=== PATIENT | male | born 2000 | race Caucasian/White ===

== ENCOUNTER 2020-01-04 06:17 | Emergency (ER) | payer BC, SELFPAY ==
[2020-01-04 06:18] VITALS: BP 131/66; PULSE 70; RESP 20; TEMP 36.6; O2SAT 100
--- NOTE | 2020-01-04 06:30 | ED.GENADULT ---
HPI - General Adult General Chief complaint: Ear Stated complaint: SORE THROAT, EAR PAIN Time Seen by Provider: 01/04/20 06:30 Source: patient Mode of arrival: ambulatory Limitations: no limitations History of Present Illness HPI narrative: Patient presented for evaluation of rhinorrhea, sinus congestion and left ear pain. Patient reports he has felt a bubbling in his left ear, he reports aching left ear pain. Ear pain travels slightly down into the patient's neck, he is reporting some swollen lymph nodes on the left side. Denies right ear pain. No current sore throat. Patient has not had a fever or cough. No shortness of breath. No recent travel. No discharge from the ear. Related Data Allergies Allergy/AdvReac Type Severity Reaction Status Date / Time No Known Allergies Allergy Verified 01/04/20 06:22 Review of Systems Review of Systems: Narrative: CONSTITUTIONAL: Denies fever, chills, or sweats. ENT: Reports rhinorrhea, congestion, denies sore throat, reports left ear otalgia CARDIOVASCULAR: Denies chest pain RESPIRATORY: Denies cough or dyspnea. GASTROINTESTINAL: Denies nausea or vomiting PMFSH Past Medical History Medical History (Updated 01/04/20 @ 06:42 by Clara Moreno MD) Anxiety Attention-deficit hyperactivity disorder, other type Depression, major, in remission Gastroesophageal reflux disease without esophagitis Sinusitis Family History Family History Grandparent Diabetes mellitus Social History Social History Smoking status: Never smoker Alcohol intake: never Substance use: never Substance use type: does not use Gender identity (if verbalized by the patient): Male Exam Narrative: Exam Narrative: GENERAL: Well-appearing, well-nourished, and in no acute distress. HEAD: Normocephalic, atraumatic. EYES: PERRLA and EOMI. ENT: Nares clear, positive rhinorrhea, no epistaxis. Left otitis media with edema, erythema of the ear canal, bulging of the tympanic membrane, loss of light reflex. Right tympanic membrane normal, pearly agarwal. No tympanic membrane perforation bilaterally. NECK: Supple. Left anterior cervical lymphadenopathy, nontender. CHEST: No respiratory distress, breathing even and nonlabored respirations HEART: Regular rate ABDOMEN: Nondistended EXTREMITIES: Normal range of motion. No edema. SKIN: Warm, dry, no rash. NEURO: No focal deficits. Alert and oriented x3 Course Course Emergency Course: Patient presented with cough, cold symptoms and found to have a left otitis media. Afebrile, no hypoxemia, cough or shortness of breath though be consistent with Covid-19 virus. No signs of type symptoms. Will treat otitis media with antibiotics, patient was then discharged home. Vital Signs Vital signs: Vital Signs Temperature 36.6 C 01/04/20 06:18 Pulse Rate 70 01/04/20 06:18 Respiratory Rate 20 01/04/20 06:18 Blood Pressure 131/66 01/04/20 06:18 Pulse Oximetry 100 01/04/20 06:18 Temperature 36.6 C 01/04/20 06:18 Pulse Rate 70 01/04/20 06:18 Respiratory Rate 20 01/04/20 06:18 Blood Pressure 131/66 01/04/20 06:18 Pulse Oximetry 100 01/04/20 06:18 Medical Decision Making Vital Signs Vital Signs: Vital Signs Temperature 36.6 C 01/04/20 06:18 Pulse Rate 70 01/04/20 06:18 Respiratory Rate 20 01/04/20 06:18 Blood Pressure 131/66 01/04/20 06:18 Pulse Oximetry 100 01/04/20 06:18 Temperature 36.6 C 01/04/20 06:18 Pulse Rate 70 01/04/20 06:18 Respiratory Rate 20 01/04/20 06:18 Blood Pressure 131/66 01/04/20 06:18 Pulse Oximetry 100 01/04/20 06:18 Discharge Plan Discharge Clinical Impression: Otitis media Qualifiers: Otitis media type: serous Chronicity: acute Laterality: left Recurrence: non-recurrent Qualified Code(s): H65.02 - Acute serous otitis media, left ear Patient Disp
[2020-01-04 07:09] VITALS: BP 122/77; PULSE 72; RESP 18; O2SAT 98
== END 2020-01-04 07:09 | disposition home or self-care (01) ==
LOC: ANHED 06:48
PROVIDERS: Emergency Provider Emergency Medicine; PCP Family Medicine
DX: H65.02 Acute serous otitis media, left ear (principal)
CPT/HCPCS: 99283

== ENCOUNTER 2020-04-29 13:52 | Emergency (ER) | payer OTHER, SELFPAY ==
--- NOTE | 2020-04-29 14:05 | ED.SKABFB ---
HPI - Skin/Abscess/Foreign Bdy General Chief complaint: Skin/Abscess/Foreign Body Stated complaint: POS SPIDER BITE/ WEAK Time Seen by Provider: 04/29/20 14:05 Source: patient and RN notes reviewed History of Present Illness HPI narrative: Patient is a 20-year-old male who presents the urgent care with complaints of a possible spider bite to the right upper thigh. Patient states that he noticed it this morning and it hurt so bad this afternoon that he was in tears . Patient appears to be extremely anxious regarding the suspected spider bite and very overly excited . Patient denies of any fever, nausea, vomiting. Patient states that he believes he got bit by a black but denies seeing any insects or spiders. Patient has taken naproxen for the pain this afternoon. No other acute complaints. No acute distress noted. Patient read the plan of care. Related Data Allergies Allergy/AdvReac Type Severity Reaction Status Date / Time No Known Allergies Allergy Verified 04/29/20 14:13 Review of Systems Review of Systems: Narrative: CONSTITUTIONAL: Denies fever, chills, or sweats. EYES: Denies visual changes, redness, or discharge. ENT: Denies rhinorrhea, congestion, sore throat, or otalgia. CARDIOVASCULAR: Denies chest pain, palpitations, or edema. RESPIRATORY: Denies cough or dyspnea. GASTROINTESTINAL: Denies abdominal pain, nausea, vomiting, or diarrhea. GENITOURINARY: Denies dysuria or hematuria. SKIN:reports of a suspected spider bite to the right inner thigh MUSCULOSKELETAL: Denies back pain, joint pain, or myalgia. NEUROLOGIC: Denies headache, numbness, or weakness. All other systems reviewed are negative, except as documented in HPI. [facility] Past Medical History Medical History (Updated 04/29/20 @ 14:16 by YANDEL Bartlett) Anxiety Attention-deficit hyperactivity disorder, other type Depression, major, in remission Gastroesophageal reflux disease without esophagitis Sinusitis Social History Social History Smoking status: Never smoker Alcohol intake: never Substance use: never Substance use type: does not use Gender identity (if verbalized by the patient): Male Comments At the time of my signature, I reviewed and agree with the nursing past medical, surgical, social, and family history. There is no relevant family history pertinent to the patient complaint. Exam Narrative: Exam Narrative: GENERAL: This is a well-nourished, well-developed patient, in no apparent distress. HEAD: normocephalic, atraumatic. EYES: PERRL. Sclera clear/white. Vision is grossly intact. EARS: External ears normal NOSE: External nose normal with no obvious nasal discharge, nares without redness, no rhinorrhea. THROAT: Mucous membranes moist NECK: Neck supple SKIN: Suspected insect bite to the right inner thigh measuring 1 cm of erythema with 0.25 cm moderately erythemic center without any notable drainage. No ecchymosis or erosion to the site. Mild tenderness. NEURO: awake, alert, and oriented to person, place and time. There were no obvious focal neurologic abnormalities. EXTREMITIES: No clubbing, cyanosis, or edema. Course Vital Signs Vital signs: Vital Signs Temperature 97.7 F 04/29/20 14:09 Pulse Rate 52 L 04/29/20 14:09 Respiratory Rate 20 04/29/20 14:09 Blood Pressure 127/64 04/29/20 14:09 Pulse Oximetry 99 04/29/20 14:09 Temperature 97.7 F 04/29/20 14:09 Pulse Rate 52 L 04/29/20 14:09 Respiratory Rate 20 04/29/20 14:09 Blood Pressure 127/64 04/29/20 14:09 Pulse Oximetry 99 04/29/20 14:09 Reviewed MDM - Skin/Abscess/Foreign Bdy MDM Narrative Medical decision making narrative: Advised the patient not to pick at the area. May cover it if necessary however it will be beneficial to keep it open to air. May use Neosporin on the area. Use ice as needed. If you notice any increase in swelling or redness over the next 24 carmen
[2020-04-29 14:09] VITALS: BP 127/64; PULSE 52; RESP 20; TEMP 36.5; O2SAT 99
== END 2020-04-29 14:23 | disposition home or self-care (01) ==
PROVIDERS: Emergency Provider Nurse Practitioner Family
DX: S70.361A Insect bite (nonvenomous), right thigh, initial encounter (principal); W57.XXXA Bitten or stung by nonvenomous insect and other nonvenomous arthropods, initial encounter; K21.9 Gastro-esophageal reflux disease without esophagitis
CPT/HCPCS: 99213; G0463

== ENCOUNTER 2020-06-18 08:42 | Emergency (ER) | payer OTHER, SELFPAY ==
--- NOTE | ~2020-06-18 | CT_ITS ---
EXAMINATION: CT brain wo con DATE: 06/18/2020 09:20 INDICATION: Headache since 3 days ago. Visual changes. Nausea and vomiting. TECHNIQUE: Computed tomography (CT) of the head was performed without intravenous contrast. The mA wa s adjusted according to patient size. Iterative reconstruction technique was employed. Exam dose: 60 5.33 mGy-cm total exam DLP. COMPARISON: None FINDINGS: No intracranial mass lesion or hemorrhage or cerebrovascular accident. No midline shift or mass effect. Normal ventricular size. Normal agarwal-white matter differentiation. No subdural or epidur al hematoma. No fracture or bone destruction of the cranial vault. Focal opacified left ethmoid air cell. The included paranasal sinuses and mastoid air cells are other neil normally developed and aerated. IMPRESSION: No significant intracranial abnormality Focal opacified left ethmoid air cell Reviewed, dictated and finalized at [facility] Reviewed, dictated and finalized at [facility].
[2020-06-18 08:45] VITALS: BP 124/74; PULSE 65; RESP 18; TEMP 36.6; O2SAT 97
--- NOTE | 2020-06-18 09:09 | ED.HA ---
HPI - Headache General Chief Complaint: Headache Stated Complaint: Terrible head pain Time Seen by Provider: 06/18/20 09:09 Source: patient Mode of arrival: ambulatory Limitations: no limitations History of Present Illness HPI Narrative: Patient is a previously healthy 20-year-old male who presents for evaluation of headache pain. Patient states headache pain began 2 days ago, described as sharp in nature located in the back of his head traveling to the front left side of his head. Patient states headache pain has been steady and worsening over the past 48 hours. He denies trying any Tylenol or ibuprofen to help alleviate the pain. He reports photosensitivity to light, denies current blurry vision. He denies nausea, vomiting. No thunderclap sensation. Patient states he awakened with the pain 2 days ago. No history of migraine headaches. No recent stressors, sleep deprivation or new medications. He denies any drug use or alcohol use. Patient denies fever, chills or neck pain. Related Data Allergies Allergy/AdvReac Type Severity Reaction Status Date / Time No Known Allergies Allergy Verified 06/18/20 08:48 Review of Systems Review of Systems: Narrative: CONSTITUTIONAL: Denies fever, chills, or sweats. EYES: Denies current visual changes, denies redness of the eyes or tearing discharge ENT: Denies rhinorrhea, congestion, sore throat, or otalgia. CARDIOVASCULAR: Denies chest pain, palpitations, or edema. RESPIRATORY: Denies cough or dyspnea. GASTROINTESTINAL: Denies abdominal pain, nausea, vomiting. SKIN: Denies rash or itching. MUSCULOSKELETAL: Denies back pain, joint pain, or myalgia. NEUROLOGIC: Denies headache, numbness, or weakness. [facility] Past Medical History Medical History Anxiety Attention-deficit hyperactivity disorder, other type Depression, major, in remission Gastroesophageal reflux disease without esophagitis Sinusitis Social History Social History Smoking status: Never smoker Alcohol intake: never Substance use: never Substance use type: does not use Gender identity (if verbalized by the patient): Male Exam Narrative: Exam Narrative: GENERAL: Awake, alert, conversant HEAD: Normocephalic, atraumatic. EYES: PERRLA and EOMI. ENT: Nares clear, no rhinorrhea or epistaxis. Mucous membranes moist. NECK: Supple. CHEST: No respiratory distress, breathing even and non labored HEART: Regular rate, sinus rhythm ABDOMEN:Non distended, non tender EXTREMITIES: Normal range of motion. No edema. SKIN: Warm, dry, no rash. NEURO:No focal deficits. Alert and oriented x3. Finger to nose intact bilaterally. EOMs intact without nystagmus. No facial droop/asymmetry noted bilaterally. Grimace intact. Intact sensation in face. Hearing intact bilaterally. Shoulder shrug intact. Strength 5/5 bilateral upper extremities. Strength 5/5 bilateral lower extremities. Reflexes 2+ patellar. Heel to sheth intact bilaterally. Ambulatory with a narrow based, steady gait. Course Vital Signs Vital signs: Vital Signs Temperature 36.6 C 06/18/20 08:45 Pulse Rate 65 06/18/20 08:45 Respiratory Rate 18 06/18/20 08:45 Blood Pressure 124/74 06/18/20 08:45 Pulse Oximetry 97 06/18/20 08:45 Temperature 36.6 C 06/18/20 11:18 Pulse Rate 54 L 06/18/20 11:56 Respiratory Rate 20 06/18/20 11:56 Blood Pressure 116/86 06/18/20 11:56 Pulse Oximetry 100 06/18/20 11:56 MDM - Headache MDM Narrative Medical decision making narrative: The patient was evaluated in the emergency department for headache. Patient has completely normal neurological exam at the time of assessment stable vital signs. IV access obtained and labs are drawn. Patient was given IV migraine cocktail. As for the patient's history, patient's headache pain was not sudden or maximal in onset. There are no focal deficits on exam. Subar
[2020-06-18] MEDS: SODIUM CHLORIDE 0.9% IV 1,000 ML 999 ML IV CONT (09:22)
[2020-06-18] MEDS: METOCLOPRAMIDE HCL INJ 10 MG/2 ML VIAL IV PUSH (09:23)
[2020-06-18] MEDS: diphenhydrAMINE HCl INJ 50 MG/ML VIAL 25 MG IV PUSH (09:24)
[2020-06-18 09:32] LABS: Basophils Percent Auto 0.6 % (0.2-1.2); Eosinophils Absolute Auto 0.1 K/mm3 (0-0.3); Eosinophils Percent Auto 1.4 % (0-4.4); Hematocrit 46.7 % (42.0-52.0); Hemoglobin 15.3 g/dL (14.0-18.0); Immature Granulocyte Absolute 0.02 K/mm3 (0.00-0.031); Immature Granulocyte Percent A 0.3 % (0-0.5); Lymphocytes Absolute Auto 1.77 K/mm3 (0.9-3.2); Lymphocytes Percent Auto 28.5 % (18.3-44.2); Mean Corpuscular HGB Conc 32.8 g/dl (32-36); Mean Corpuscular Hemoglobin 28.9 pg (26-34); Mean Corpuscular Volume 88.3 fl (80-100); Mean Platelet Volume 10.7 fl (7.4-10.4); Monocytes Absolute Auto 0.5 K/mm3 (0.1-0.6); Monocytes Percent Auto 7.2 % (2.6-8.5); Neutrophils Absolute Auto 3.9 K/mm3 (1.3-6.7); Platelet Count Result 250 k/mm3 (150-375); Red Blood Count 5.29 M/mm3 (4.6-6.20); Red Cell Distribution Width 13.1 % (11.5-14.5); White Blood Count 6.2 K/mm3 (4.5-10.0)
[2020-06-18 09:46] LABS: Anion Gap 11 mmol/L (8-16); Blood Urea Nitrogen 12 mg/dL (9-20); Calcium 9.5 mg/dL (8.4-10.2); Carbon Dioxide 25 mmol/L (22-30); Chloride 107 mmol/L (98-107); Estimated CRCL calculation 158 ml/min; Estimated Glomerular Filt Rate > 60; Glucose 97 mg/dL (75-110); Sodium 143 mmol/L (137-145)
[2020-06-18 09:50] VITALS: BP 112/71; PULSE 50; RESP 18; O2SAT 98
[2020-06-18] MEDS: MAGNESIUM SULF 2 GM/WATER 50ML 2 GM/50 ML BAG IVPB (09:50)
[2020-06-18 09:56] VITALS: TEMP 36.6
[2020-06-18 10:18] VITALS: BP 108/67; PULSE 54; RESP 18; O2SAT 99
[2020-06-18] MEDS: KETOROLAC 15 MG/ML VIAL (*BKC) IV PUSH (10:48)
[2020-06-18 11:18] VITALS: TEMP 36.6
[2020-06-18 11:56] VITALS: BP 116/86; PULSE 54; RESP 20; O2SAT 100
== END 2020-06-18 12:27 | disposition home or self-care (01) ==
PROVIDERS: Emergency Provider Emergency Medicine; PCP Family Medicine
DX: G43.009 Migraine without aura, not intractable, without status migrainosus (principal); K21.9 Gastro-esophageal reflux disease without esophagitis
CPT/HCPCS: 36415; 70450; 80048; 85025; 96361; 96365; 96375; 99284; J0131; J1100; J1200; J1885; J2765; J3475; J7030

== ENCOUNTER 2021-11-17 11:35 | Emergency (ER) | payer OTHER, SELFPAY ==
--- NOTE | ~2021-11-17 | XR_ITS ---
EXAMINATION: XR chest 2V DATE: 11/17/2021 12:55 INDICATION: Chest pain TECHNIQUE: PA and lateral views of the chest were obtained. COMPARISON: None FINDINGS: The lungs are clear with no focal airspace opacities, pulmonary edema, pleural effusion or pneumothor ax. The cardiomediastinal silhouette is normal. Visualized bones and soft tissues are unremarkable. IMPRESSION: 1. Normal chest radiograph. Reviewed, dictated and finalized at [facility]. WORKER IMPRESSION: 1. Normal chest radiograph.
[2021-11-17 11:37] VITALS: BP 127/72; PULSE 59; RESP 16; TEMP 36.3; O2SAT 100
--- NOTE | 2021-11-17 12:30 | ECG_ITS ---
Measurements Intervals [place] Rate: 50 P: 11 CA: 141 QRS: 25 QRSD: 102 T: 14 QT: 416 QTc: 382 Interpretive Statements SINUS BRADYCARDIA MINIMAL Q WAVES- HIGH LATERAL LEADS BASELINE ARTIFACT- I, III, AVL BORDERLINE ECG Electronically Signed On 11-17-2021 13:52:02 [employer] by Emil Phelps D.O.
[2021-11-17 12:39] VITALS: PULSE 66
[2021-11-17 12:45] VITALS: BP 115/79; PULSE 67; RESP 17; O2SAT 98
[2021-11-17 13:16] LABS: Basophils Percent Auto 0.5 % (0.2-1.2); Eosinophils Percent Auto 0.6 % (0-4.4); Hematocrit 42.4 % (42.0-52.0); Hemoglobin 14.4 g/dL (14.0-18.0); Immature Granulocyte Absolute 0.01 K/mm3 (0.00-0.031); Immature Granulocyte Percent A 0.2 % (0-0.5); Lymphocytes Percent Auto 26.2 % (18.3-44.2); Mean Corpuscular Hemoglobin 29.9 pg (26-34); Mean Corpuscular Volume 88.1 fl (80-100); Mean Platelet Volume 10.2 fl (7.4-10.4); Monocytes Absolute Auto 0.6 K/mm3 (0.1-0.6); Monocytes Percent Auto 9.5 % (2.6-8.5); Neutrophils Absolute Auto 4.1 K/mm3 (1.3-6.7); Platelet Count Result 208 k/mm3 (150-375); Red Blood Count 4.81 M/mm3 (4.6-6.20); Red Cell Distribution Width 12.9 % (11.5-14.5); White Blood Count 6.5 K/mm3 (4.5-10.0)
[2021-11-17 13:30] LABS: Alanine Aminotransferase 18 U/L (4-50); Albumin Level 4.7 g/dL (3.5-5.1); Alkaline Phosphatase 69 U/L (38-126); Anion Gap 7 mmol/L (8-16); Aspartate Amino Transferase 30 U/L (17-59); Bilirubin,Total 0.8 mg/dL (0.2-1.3); Blood Urea Nitrogen 11 mg/dL (9-20); Calcium 9.6 mg/dL (8.4-10.2); Carbon Dioxide 26 mmol/L (22-30); Chloride 106 mmol/L (98-107); Estimated CRCL calculation 187 ml/min; Estimated Glomerular Filt Rate > 60; Glucose 97 mg/dL (65-110); Potassium 3.6 mmol/L (3.4-5.0); Sodium 139 mmol/L (137-145)
[2021-11-17 13:40] LABS: Troponin I < 0.012 ng/mL (0.000-0.034)
[2021-11-17 13:48] LABS: D Dimer < 0.27 ug/mL (<0.48)
--- NOTE | 2021-11-17 13:51 | ED.GENADULT ---
HPI - General Adult General Chief complaint: Shortness of Breath/Dyspnea Stated complaint: sob, arm pain Time Seen by Provider: 11/17/21 12:21 History of Present Illness HPI narrative: Patient is a 21-year-old male who presents ER with left arm pain as well as numbness and some shortness of breath/chest discomfort. Symptoms lasted 45 minutes. No known injury. No history of DVT or PE. No lower extremity swelling. Patient reports he had point tenderness in the middle of his left bicep and this was occurring that was worse with palpation. Had normal range of motion and function. Had tingling going into his fingers. Reports brief difficulty breathing. No hemoptysis. No cough. Related Data Allergies Allergy/AdvReac Type Severity Reaction Status Date / Time No Known Allergies Allergy Verified 11/17/21 12:39 Review of Systems Review of Systems: All systems reviewed & are unremarkable except as noted in HPI and below Constitutional: Constitutional: Denies chills, Denies fever(s) and Denies weakness ENT: Denies nasal congestion and Denies sore throat Cardiovascular: Cardiovascular: Reports chest pain, Denies rapid heart rate and Denies radiating jaw, neck or arm pain Respiratory: Respiratory: Denies cough and Reports dyspnea Musculoskeletal: Musculoskeletal: Denies back pain, Denies arthralgias and Reports muscle cramps Neurologic: Denies dizziness, Denies headache(s), Denies focal weakness and Reports numbness PMFSH Past Medical History Medical History (Updated 11/17/21 @ 15:16 by Liam Smallwood MD) Adult BMI 26.0-26.9 kg/sq m Anxiety Attention-deficit hyperactivity disorder, other type BMI 24.0-24.9, adult BMI 25.0-25.9,adult Depression, major, in remission Gastroesophageal reflux disease without esophagitis Sinusitis Surgical History Surgical History (Updated 11/17/21 @ 14:02 by Liam Smallwood MD) No pertinent past surgical history Family History Family History Grandparent Diabetes mellitus COVID-19 Father No problems noted. Mother No problems noted. Sibling No problems noted. Social History Social History Smoking status: Former smoker Tobacco type: e-cigarettes/vaping Second hand tobacco smoke exposure: No Alcohol intake: current Substance use: never Substance use type: does not use Additional occupation/education comments: day care Gender identity (if verbalized by the patient): Male Exam Narrative: GENERAL: Well-appearing, well-nourished, and in no acute distress. HEAD: Normocephalic, atraumatic. EYES: PERRL and EOMI. NECK: Supple. No paraspinal muscle tenderness. CHEST: Clear to auscultation. No respiratory distress. HEART: Bradycardic and regular. Normal peripheral pulses. ABDOMEN: Soft, nontender, nondistended EXTREMITIES: Normal range of motion. No edema. No reproducible tenderness. Negative carpal tunnel compression test. SKIN: Warm, dry, no rash. NEURO: No focal deficits. Alert and oriented x3. Course Course Emergency Course: Patient resting comfortably. He does feel that he had a muscle cramp and likely had anxiety as a result of it. He has no discomfort or issues here. Work-up is benign unremarkable. Discharge home. Vital Signs Vital signs: Vital Signs Temperature 97.4 F L 11/17/21 11:37 Pulse Rate 59 L 11/17/21 11:37 Respiratory Rate 16 11/17/21 11:37 Blood Pressure 127/72 11/17/21 11:37 Pulse Oximetry 100 11/17/21 11:37 Temperature 97.4 F L 11/17/21 11:37 Pulse Rate 67 11/17/21 12:45 Respiratory Rate 17 11/17/21 12:45 Blood Pressure 115/79 11/17/21 12:45 Pulse Oximetry 98 11/17/21 12:45 Medical Decision Making Vital Signs Vital Signs: Vital Signs Temperature 97.4 F L 11/17/21 11:37 Pulse Rate 59 L 11/17/21 11:37 Respiratory Rate 16 11/17/21 11:37 Blood Pressu
[2021-11-17 15:35] VITALS: BP 105/74; PULSE 55; RESP 16; O2SAT 99
== END 2021-11-17 15:35 | disposition home or self-care (01) ==
PROVIDERS: Emergency Provider Emergency Medicine; PCP Family Medicine
DX: R25.2 Cramp and spasm (principal); R00.1 Bradycardia, unspecified; F41.9 Anxiety disorder, unspecified; F32.9 Major depressive disorder, single episode, unspecified; K21.9 Gastro-esophageal reflux disease without esophagitis
CPT/HCPCS: 36415; 71046; 80053; 84484; 85025; 85380; 93005; 99284

== ENCOUNTER 2022-04-21 10:10 | Emergency (ER) | payer SELFPAY ==
--- NOTE | 2022-04-21 10:14 | ED.URI ---
HPI - URI/Sore Throat General Chief Complaint: Upper Respiratory Infection Stated Complaint: Sore Throat Time Seen by Provider: 04/21/22 10:25 Source: patient, RN notes reviewed and old records reviewed Mode of arrival: ambulatory Limitations: no limitations History of Present Illness HPI Narrative: 22 year old male presents to [facility] care with complaints of sore throat for the past 8 days and intermittent headache, runny nose and pressure to his ears. He reports that he has had some nausea but denies any vomiting or diarrhea. He states that he had 101F fever at 0300 and he took Advil with temp down to 99F at 0600. He reports that he has had Covid vaccinations no Booster or any flu shot, denies any body aches or any shortness of breath. 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 MD elicited complaint: fever, sore throat, rhinorrhea and other (ear pressure) Pertinent past history: seasonal allergies Onset (ago): day(s) (8) Pain scale (0-10): 4 Treatments prior to arrival: ibuprofen Related Data Home Medications Medication Instructions Recorded Confirmed No Home Medications 04/21/22 04/21/22 Allergies Allergy/AdvReac Type Severity Reaction Status Date / Time No Known Allergies Allergy Verified 04/21/22 10:11 Review of Systems Review of Systems: CONSTITUTIONAL: Reports fever, chills, or sweats. EYES: Denies visual changes, redness, or discharge. ENT: Positive rhinorrhea, congestion, sore throat, ear pressure CARDIOVASCULAR: Denies chest pain, palpitations, or edema. RESPIRATORY: Denies cough or dyspnea. GASTROINTESTINAL: Denies abdominal pain, nausea, vomiting, or diarrhea. GENITOURINARY: Denies dysuria or hematuria. SKIN: Denies rash or itching. MUSCULOSKELETAL: Denies back pain, joint pain, or myalgia. NEUROLOGIC: Positive for headache,no numbness, or weakness. PSYCHIATRIC: Positive anxiety or depression. All systems reviewed & are unremarkable except as noted in HPI and below PMFSH Past Medical History Medical History Adult BMI 26.0-26.9 kg/sq m Anxiety Attention-deficit hyperactivity disorder, other type BMI 24.0-24.9, adult BMI 25.0-25.9,adult Depression, major, in remission Gastroesophageal reflux disease without esophagitis Sinusitis Surgical History Surgical History No pertinent past surgical history Family History Family History Grandparent Diabetes mellitus COVID-19 Father No problems noted. Mother No problems noted. Sibling No problems noted. Social History Social History Smoking status: Former smoker Tobacco type: e-cigarettes/vaping Second hand tobacco smoke exposure: No Alcohol intake: current Substance use: never Substance use type: does not use Additional occupation/education comments: day care Gender identity (if verbalized by the patient): Male Comments At time of signature, agree with nursing past medical, surgical, social and family history. There is no relevant family history pertinent to the presenting complaint Exam Narrative: GENERAL: Well-appearing, well-nourished, and in no acute distress. HEAD: Normocephalic, atraumatic. EYES: PERRLA and EOMI. ENT: Nares mild redness with clear rhinorrhea no epistaxis. Mucous membranes moist.TM's normal with dull light reflex, throat with some redness, uvula swollen and red, no exudates or lesion, no tonsil swelling. NECK: Supple. no lymphadenopathy CHEST: Clear to auscultation. No respiratory distress.SAO2 100% on room air HEART: Regular rate and rhythm. No murmur heard. Normal peripheral pulses. ABDOMEN: Soft, nontender, nondistended, normal active bowel sounds. EXTREMITIES: Normal range of motion. No edema. SKIN: Warm, dry, no rash. NEURO: No focal deficits. Alert and oriented x3. Co
[2022-04-21 10:19] VITALS: BP 125/77; PULSE 80; RESP 12; TEMP 36.6; O2SAT 100
== END 2022-04-21 10:53 | disposition home or self-care (01) ==
PROVIDERS: Emergency Provider Registered Nurse
DX: J06.9 Acute upper respiratory infection, unspecified (principal); J02.9 Acute pharyngitis, unspecified; Z20.822 Contact with and (suspected) exposure to COVID-19; K21.9 Gastro-esophageal reflux disease without esophagitis
CPT/HCPCS: 87081; 87426; 87880; 99213; C9803; G0463

== ENCOUNTER 2022-12-20 10:28 | Emergency (ER) | payer SELFPAY ==
[2022-12-20 10:35] VITALS: BP 127/91; PULSE 62; RESP 18; TEMP 36.7; O2SAT 99
[2022-12-20 11:05] LABS: Basophils Percent Auto 0.6 % (0.2-1.2); Eosinophils Absolute Auto 0.1 K/mm3 (0-0.3); Eosinophils Percent Auto 1.2 % (0-4.4); Hematocrit 42.2 % (42.0-52.0); Hemoglobin 14.3 g/dL (14.0-18.0); Immature Granulocyte Absolute 0.01 K/mm3 (0.00-0.031); Immature Granulocyte Percent A 0.2 % (0-0.5); Lymphocytes Absolute Auto 1.61 K/mm3 (0.9-3.2); Lymphocytes Percent Auto 32.4 % (18.3-44.2); Mean Corpuscular HGB Conc 33.9 g/dl (32-36); Mean Corpuscular Hemoglobin 30.4 pg (26-34); Mean Corpuscular Volume 89.6 fl (80-100); Mean Platelet Volume 9.6 fl (7.4-10.4); Monocytes Absolute Auto 0.4 K/mm3 (0.1-0.6); Monocytes Percent Auto 7.4 % (2.6-8.5); Neutrophils Absolute Auto 2.9 K/mm3 (1.3-6.7); Neutrophils Percent Auto 58.2 % (45.5-73.1); Platelet Count Result 221 k/mm3 (150-375); Red Blood Count 4.71 M/mm3 (4.6-6.20); Red Cell Distribution Width 12.7 % (11.5-14.5)
[2022-12-20 11:06] LABS: Appearance Urine Clear (Clear); Bilirubin Urine Negative (Negative); Blood Urine Negative (Negative); Color Urine Yellow (Yellow); Glucose Urine UA Negative (Negative); Ketones Urine Trace mg/dL (Negative); Leukocyte Esterase Ur Negative LEU/UL (Negative); Nitrate Urine Negative (Negative); Protein Urine Negative (Negative); Specific Grav Ur 1.021 (1.001-1.035); pH Urine 7.5 (5.0-9.0)
[2022-12-20 11:11] LABS: Add Urine Microscopic? NO
[2022-12-20 11:15] LABS: Alanine Aminotransferase 22 U/L (6-50); Albumin Level 4.6 g/dL (3.5-5.1); Alkaline Phosphatase 61 U/L (38-126); Anion Gap 7 mmol/L (8-16); Aspartate Amino Transferase 31 U/L (17-59); Bilirubin,Total 0.8 mg/dL (0.2-1.3); Blood Urea Nitrogen 8 mg/dL (9-20); Carbon Dioxide 26 mmol/L (22-30); Chloride 107 mmol/L (98-107); Glucose 101 mg/dL (65-110); Sodium 140 mmol/L (137-145)
--- NOTE | 2022-12-20 11:29 | PC.NURSE ---
RN called pt to go back to a room. Pt stated his brother was having a medical emergency and being transported to [facility] and he had to leave because he was POA. RN informed pt he would go to a room now. Pt states he had to leave.
[2022-12-20 11:42] LABS: Estimated CRCL calculation 209 ml/min; Estimated Glomerular Filt Rate > 60
== END 2022-12-20 11:29 | disposition left against medical advice (07) ==
LOC: ANHED 11:40
PROVIDERS: Emergency Provider Physician Assistant
DX: R10.9 Unspecified abdominal pain (principal)
CPT/HCPCS: 36415; 80053; 81003; 85025; 99199

== ENCOUNTER 2024-05-28 09:48 | Emergency (ER) | payer OTHER, SELFPAY ==
[2024-05-28 10:17] VITALS: BP 116/66; PULSE 54; RESP 18; TEMP 36.6; O2SAT 100
--- NOTE | 2024-05-28 10:17 | ECG_ITS ---
Test Date: 2024-05-28 10:30:04 Measurements Intervals [place] Rate: 49 P: 19 MS: 156 QRS: 36 QRSD: 100 T: 19 QT: 411 QTc: 371 Interpretive Statements SINUS BRADYCARDIA No previous ECG available for comparison Electronically Signed On 05-29-2024 14:19:52 CDT by Dustin Fraire M.D.
--- NOTE | 2024-05-28 10:21 | ED.CHESTPAIN ---
HPI - Chest Pain General Chief Complaint: Chest Pain Stated Complaint: warmth around heart area Time Seen by Provider: 05/28/24 10:20 Source: patient Mode of arrival: ambulatory Limitations: no limitations History of Present Illness HPI narrative: Jefe is a 24-year-old male patient presenting to the clinic today with complaints of feeling a warmth around the left chest and right arm pain. He reports that he woke up around 230 this morning with the warmth feeling around his chest and some right arm pain. Initially he thought he may slip on his arm wrong but then started to become anxious about the arm pain and the warmness sensation to the left chest and thought he was having a heart attack. He started to Google his symptoms. History of anxiety and GERD. Former smoker/alcohol use-quit 2 years ago. States that his younger brother had a heart attack in his early 20s. Has not seen a primary care provider or had any blood work since 2019. Denies any shortness of breath associated. States that this does not feel like anxiety or GERD. Related Data Home Medications Medication Instructions Recorded Confirmed No Home Medications 04/21/22 05/28/24 Allergies Allergy/AdvReac Type Severity Reaction Status Date / Time No Known Allergies Allergy Verified 05/28/24 10:26 Review of Systems Review of Systems: Pertinent positives per HPI. Patient denies any fever, chills, rash, headache, visual changes, dizziness, cough, runny nose, sore throat, shortness of breath, palpitations, nausea, vomiting, diarrhea, constipation, abdominal pain, or any urinary issues. PMFSH Past Medical History Medical History Adult BMI 26.0-26.9 kg/sq m Anxiety Attention-deficit hyperactivity disorder, other type BMI 24.0-24.9, adult BMI 25.0-25.9,adult Depression, major, in remission Gastroesophageal reflux disease without esophagitis Sinusitis Surgical History Surgical History No pertinent past surgical history Family History Family History Grandparent Diabetes mellitus COVID-19 Father No problems noted. Mother No problems noted. Sibling No problems noted. Social History Social History Smoking status: Former smoker Tobacco type: e-cigarettes/vaping Second hand tobacco smoke exposure: No Alcohol intake: current Substance use: never Substance use type: does not use Living arrangements: with family Occupation/Education: occupation Additional occupation/education comments: day care Gender identity (if verbalized by the patient): Male Comments At the time of my signature, I reviewed and agree with the nursing past medical, surgical, social, and family history. There is no relevant family history pertinent to the patient complaint. Exam Narrative: General: Well-developed, well nourished, in no apparent distress Head: Normocephalic, atraumatic. Cardio: Regular rate and rhythm, s1 and s2 normal, no murmur appreciated. Resp: Clear to auscultation bilaterally, no rhonchi, rales, wheezing or rubs. Extremities: No deformity, no edema, no cyanosis, capillary refill less than 2 seconds, peripheral pulses palpable and strong. Integumentary: [place], warm, and dry, intact without lesion, no rashes. Course Course Emergency Course: Portions of this record may have been created with voice recognition software. Level of Care: Express Care Visit Vital Signs Vital signs: Vital Signs Temperature 36.6 C 05/28/24 10:17 Pulse Rate 54 L 05/28/24 10:17 Respiratory Rate 18 05/28/24 10:17 Blood Pressure 116/66 05/28/24 10:17 Pulse Oximetry 100 05/28/24 10:17 Oxygen Delivery Room Air 05/28/24 10:17 Temperature 36.6 C 05/28/24 10:17 Pulse Rate 54 L
== END 2024-05-28 10:46 | disposition short-term general hospital (02) ==
PROVIDERS: Emergency Provider Nurse Practitioner Family
DX: R07.9 Chest pain, unspecified (principal); M79.601 Pain in right arm; K21.9 Gastro-esophageal reflux disease without esophagitis; Z87.891 Personal history of nicotine dependence
CPT/HCPCS: 93005; 99213; G0463

== ENCOUNTER 2024-05-28 11:03 | Emergency (ER) | payer OTHER, SELFPAY ==
--- NOTE | ~2024-05-28 | XR_ITS ---
XR chest 2V Ordering provider: Adela Barragan MD History: 24 years Male with . CP - left sided . Comparison: November 17, 2021 FINDINGS: MEDIASTINUM: The cardiac silhouette is not enlarged. LUNGS: No infiltrates, effusions or pneumothorax. OTHER: No free air under the diaphragm. IMPRESSION: No acute cardiopulmonary pathology. Reviewed, dictated and finalized at location A.
--- NOTE | 2024-05-28 11:06 | ECG_ITS ---
Test Date: 2024-05-28 11:11:09 Measurements Intervals [place] Rate: 48 P: 18 LA: 138 QRS: 29 QRSD: 99 T: 10 QT: 411 QTc: 371 Interpretive Statements SINUS BRADYCARDIA Compared to ECG 05/28/2024 10:30:04 No significant changes Electronically Signed On 05-29-2024 14:20:23 CDT by Dustin Fraire M.D.
[2024-05-28 11:14] VITALS: BP 137/82; PULSE 52; RESP 15; TEMP 36.8; O2SAT 100
[2024-05-28] MEDS: ASPIRIN 81 MG CHEWABLE TABLET 324 MG PO (11:21)
[2024-05-28 11:22] VITALS: O2SAT 100
[2024-05-28 11:26] VITALS: PULSE 53
--- NOTE | 2024-05-28 11:34 | ED.CHESTPAIN ---
HPI - Chest Pain General Chief Complaint: Chest Pain Stated Complaint: L sided chest pain Time Seen by Provider: 05/28/24 11:16 Source: patient and other (Urgent Care) Limitations: no limitations History of Present Illness HPI narrative: Patient presents from urgent care where there was concern for features of EKG and patient's family history. Patient presents with a chest discomfort that he does not describe as carson pain but uncomfortable. He states he feels warmth...feels like I'm near an electric blanket or felt like I had taken a warm shot of alcohol but he denies alcohol recently. He had been diagnosed with refluex when he was younger and had been on medication but not currently as this has been welll controlled through diet modification, avoiding tomaotoes/red sauce, spice food, or coffee. Denies any sharp or stabbing nature to the pain. It started at 2:30 in the morning at rest while on his phone. He denies feeling flushed or having shortness of breath. No diaphoresis. He had felt nauesated and fatigued earlier in the day around the time work (in a [employer]) was wrapping up but not at the time of symptoms. No diagnosis of HTN, HLD, MD, DM, CVA/TIA. He quit vaping 2 years ago. His brother questionably had a MD in his early 20s as he had concerning EKG findings while in EMT class but does not have any cardiac stents. Related Data Allergies Allergy/AdvReac Type Severity Reaction Status Date / Time No Known Allergies Allergy Verified 05/28/24 10:26 COUNT INCLUDES THE [facility] Past Medical History Medical History Adult BMI 26.0-26.9 kg/sq m Anxiety Attention-deficit hyperactivity disorder, other type Depression, major, in remission Gastroesophageal reflux disease without esophagitis Sinusitis Surgical History Surgical History No pertinent past surgical history Family History Family History Grandparent Diabetes mellitus COVID-19 Father No problems noted. Mother No problems noted. Sibling Acute myocardial infarction early 20s; based on EKG findings, no stents Social History Social History Smoking status: Former smoker Tobacco type: e-cigarettes/vaping Second hand tobacco smoke exposure: No Alcohol intake: current Substance use: never Substance use type: does not use Living arrangements: with family Occupation/Education: occupation Additional occupation/education comments: previously worked in day care, now works for a [employer] Gender identity (if verbalized by the patient): Male Additional gender identity comments: engaged/has a fiance Exam Narrative: GENERAL: Well-appearing, well-nourished, and in no acute distress. HEAD: Normocephalic, atraumatic. EYES: Non injected, non icteric ENT: Nares clear, no rhinorrhea or epistaxis. NECK: Supple. CHEST: Speaking in full sentences. No respiratory distress. No subcutaneous emphysema. HEART: Bradycardic rate and rhythm. . ABDOMEN: Soft, nondistended. EXTREMITIES: Normal range of motion. No lower extremity edema. SKIN: Warm, dry, no rash. No erythema or ecchymosis or lesions over chest. NEURO: No focal deficits. Alert and oriented x3. PSYCH: Normal mood and affect. Course Vital Signs Vital signs: Vital Signs Temperature 98.3 F 05/28/24 11:14 Pulse Rate 52 L 05/28/24 11:14 Respiratory Rate 15 05/28/24 11:14 Blood Pressure 137/82 05/28/24 11:14 Pulse Oximetry 100 05/28/24 11:14 Oxygen Delivery Room Air 05/28/24 11:14 Temperature 98.3 F 05/28/24 11:14 Pulse Rate 54 L 05/28/24 13:23 Respiratory Rate 16 05/28/24 13:23 Blood Pressure 112/73 05/28/24 13:23 Pulse Oximetry 100 05/28/24 13:23 Oxygen Delivery Room Air 05/28/24 11:22 MDM - Chest Pain MDM Narrat
[2024-05-28 12:07] LABS: Basophils Percent Auto 0.3 % (0.2-1.2); Eosinophils Absolute Auto 0.1 K/mm3 (0-0.3); Eosinophils Percent Auto 1.2 % (0-4.4); Hematocrit 43.1 % (42.0-52.0); Hemoglobin 14.7 g/dL (14.0-18.0); Immature Granulocyte Absolute 0.01 K/mm3 (0.00-0.031); Immature Granulocyte Percent A 0.2 % (0-0.5); Lymphocytes Percent Auto 28.2 % (18.3-44.2); Mean Corpuscular HGB Conc 34.1 g/dl (32-36); Mean Corpuscular Hemoglobin 30.7 pg (26-34); Mean Platelet Volume 9.9 fl (7.4-10.4); Monocytes Absolute Auto 0.5 K/mm3 (0.1-0.6); Neutrophils Absolute Auto 3.7 K/mm3 (1.3-6.7); Neutrophils Percent Auto 62.1 % (45.5-73.1); Platelet Count Result 211 k/mm3 (150-375); Red Blood Count 4.79 M/mm3 (4.6-6.20); Red Cell Distribution Width 12.8 % (11.5-14.5)
[2024-05-28 12:19] LABS: Alanine Aminotransferase 20 U/L (6-50); Albumin Level 4.9 g/dL (3.5-5.1); Alkaline Phosphatase 69 U/L (38-126); Anion Gap 12 mmol/L (4-12); Aspartate Amino Transferase 28 U/L (17-59); Bilirubin,Total 0.8 mg/dL (0.2-1.3); Blood Urea Nitrogen 11 mg/dL (9-20); Calcium 9.5 mg/dL (8.4-10.2); Carbon Dioxide 26 mmol/L (22-30); Chloride 101 mmol/L (98-107); Estimated CRCL calculation 153 ml/min; Estimated Glomerular Filt Rate > 60; Glucose 95 mg/dL (65-110); Lipase 63 U/L (23-300); Potassium 4.1 mmol/L (3.4-5.0); Sodium 139 mmol/L (137-145)
[2024-05-28 12:23] LABS: Prothrombin Time 13.6 Seconds (11.1-14.7)
[2024-05-28 12:24] LABS: Partial Thromboplastin Time 29.5 Seconds (22.3-36.8)
[2024-05-28 12:31] LABS: Troponin I < 0.012 ng/mL (0.000-0.034)
[2024-05-28 13:23] VITALS: BP 112/73; PULSE 54; RESP 16; O2SAT 100
[2024-05-28] MEDS: FAMOTIDINE 10 MG TABLET PO (13:25)
== END 2024-05-28 13:31 | disposition home or self-care (01) ==
PROVIDERS: Emergency Provider Student in an Organized Health Care Education/Training Program
DX: R00.1 Bradycardia, unspecified (principal); R07.89 Other chest pain; Z87.891 Personal history of nicotine dependence
CPT/HCPCS: 36415; 71046; 80053; 83690; 84484; 85025; 85610; 85730; 93005; 99284; A9270

== ENCOUNTER 2025-02-17 10:54 | Emergency (ER) | payer OTHER, SELFPAY ==
[2025-02-17 11:05] VITALS: BP 135/80; PULSE 66; RESP 18; TEMP 36.4; O2SAT 99
--- OUTSIDE RECORDS SUMMARY | 2025-02-17 11:17 | XMS_ITS | Continuity of Care Document ---
Author Organization [facility] Address [address] [place] [address] Phone Care Team Providers Care Implementation Services Analyst Name Role Phone Berkowitz OD, José Miguel Unavailable Unavailable Procedures Procedure Date Eye Exam & Treatment Refraction Eye Exam & Treatment Refraction Eye Exam & Treatment Refraction Advance Directives Directive Yes / No Effective Date File Name No Information Encounters Encounter Description Practice Location Reason(s) For Visit Diagnoses Date Provider Providers Copied on Encounter [facility], [address] [place] [address] [address], [place], [place], [id number], tel:[phone] [facility] No Information 9-201 0 Berkowitz OD José Miguel. [address] , [address], [place], [place], [facility], [place]. tel:[phone] [facility], [address] [place] [address] [address], [place], [place], [id number], [place] tel:[phone] [facility] No Information 8-200 9 Berkowitz OD José Miguel. [address], [address], [place], [address], [place]. tel:[phone] [facility], [address] [place] [address] [address], [place], [place], [id number], [place] tel:[phone] [facility] No Information 9-200 7 Berkowitz OD José Miguel. [address] , [address], [place], [address], [place]. tel:[phone] Family History Family Member Type Diagnosis Age At Onset No Information Payers Payer name Insurance type Covered green party ID Romario bernal(s) [facility] [id number] Social History Type Description Quantity Date Captured Comments Sex Male Smoking Status No Information Chief Complaint And Reason For Visit No Information Reason For Referral Reason For Referral No Information History Of Present Illness Encounter Date Complaint History Of Prese nt Illness No Information Functional Status Date Functional Assessmen t No Information Instructions Date Instruction Additional Infor mation No Information Assessments Type Assessment Date No Information Patient Care Teams Name Effective Dates (start - stop) Status Members No Information
--- OUTSIDE RECORDS SUMMARY | 2025-02-17 11:17 | XMS_ITS | Clinical Summary ---
Author Organization [facility] Address [address] [place] [address] Care Team Providers Care Aviation Electronic Warfare Operator Name Role Phone Deb Denney NP Primary Care Provider Unavailabl e Social History Tobacco Use Types Packs/Day Years Used Date Smoking Tobacco: Never Assessed Sex and Gender Information Value Date Recorded Sex Assigned at Not on file Legal Sex Male 7:40 PM CDT Gender Identity Not on file Sexual Orientation Not on file Last Filed Vital Signs Vital Sign Reading Time Taken Comments Blood Pressure 108/64 10/07/2012 8:02 [facility] Pulse 68 10/07/2012 8:02 [facility] Temperature - - Respiratory Rate - - Oxygen Saturation - - Inhaled Oxygen Concentration - - Weight 70 kg (154 lb 6.4 oz) 10/07/2012 8:02 [facility] Height 189.2 cm (6' 2.5 ) 10/07/2012 8:02 [facility] Body Mass Index 19.56 10/07/2012 8:02 [facility] Plan of Treatment Health Maintenance Due Date Last Done Comments Annual Physical 2001 Hepatitis C 01/28/2016 DTaP, Tdap and Td Vaccines ( 1 - Tdap) 2017 Hepatitis B Vaccines (1 of 3 - 19+ 3-dose series) 2017 COVID-19 Vaccine (2023-2 5 season) 2024 HPV Vaccines Aged Out No longer eligi ble based on patient's age to complete this topic Meningococcal B Vaccine Aged Out No l onger eligible based on patient's age to complete this topic Meningococcal Vaccine Aged Out No damaris francisca eligible based on patient's age to complete this topic Pneumococcal Vaccine: Pediat rics (0 to 5 Years) and At-Risk Patients (6 to 49 Years) Aged Out No longer eligible b ased on patient's age to complete this topic RSV Immunizations Under 20 Months Aged Out No longer eligible based on patient's age to complete this topic Care Teams Aviation Electronic Warfare Operator Relationship Specialty Start Date End Date Deb Denney, CLASSIFIER OPERATOR PCP - General NURSE PRACTITIONER 03/08/22
--- OUTSIDE RECORDS SUMMARY | 2025-02-17 11:18 | XMS_ITS | Continuity of Care Document ---
Author Organization [facility] Address [address] [place] [address] Phone Care Team Providers Care Architectural Coating Finisher Name Role Phone Berkowitz OD, José Miguel Unavailable Unavailable Procedures Procedure Date Eye Exam & Treatment Refraction Eye Exam & Treatment Refraction Eye Exam & Treatment Refraction Advance Directives Directive Yes / No Effective Date File Name No Information Encounters Encounter Description Practice Location Reason(s) For Visit Diagnoses Date Provider Providers Copied on Encounter [facility], [address] [place] [address] [address], [facility], [place], [id number], tel:[phone] [facility] No Information 9-201 0 Berkowitz OD José Miguel. [address] , [address], [place], [place], [facility], [place]. tel:[phone] [facility], [address] [place] [address] [address], [facility], [place], [id number], [place] tel:[phone] [facility] No Information 8-200 9 Berkowitz OD José Miguel. [address], [place], [address], [place]. tel:[phone] [facility], [address] [place] [address] [address], [facility], [place], [id number], [place] tel:[phone] [facility] No Information 9-200 7 Berkowitz OD José Miguel. [address] , [address], [place], [address], [place]. tel:[phone] Family History Family Member Type Diagnosis Age At Onset No Information Payers Payer name Insurance type Covered alliance party ID Romario bernal(s) [facility] [id number] Social History Type Description Quantity Date Captured [...]
--- NOTE | 2025-02-17 11:21 | ED.GENADULT ---
HPI - General Adult General Chief complaint: Unspecified Stated complaint: Skin/Abscess/Foreign Body Time Seen by Provider: 02/17/25 11:21 Source: patient, RN notes reviewed and old records reviewed Mode of arrival: ambulatory Limitations: no limitations History of Present Illness HPI narrative: 25-year-old male presents to the [facility] with concerns for a hemorrhoid. Reports history of hemorrhoids, has not followed up with a GI doctor in the past. States as he is using preparation H which normally works for him. Related Data Home Medications ?Medication ?Instructions ?Recorded ?Confirmed ?Last Taken ?Type No Home Medications 02/17/25 02/17/25 Unknown History Allergies Allergy/AdvReac Type Severity Reaction Status Date / Time No Known Allergies Allergy Verified 02/17/25 11:07 Review of Systems Review of Systems: All systems reviewed & are unremarkable except as noted in HPI and below Constitutional: Constitutional: Reports no additional constitutional complaints ENT: Reports system reviewed and no additional complaints, except as documented Cardiovascular: Cardiovascular: Reports no additional cardiovascular complaints, Denies chest pain and Denies dyspnea Respiratory: Respiratory: Reports no additional respiratory complaints, Denies chest congestion, Denies cough and Denies dyspnea Gastrointestinal: Gastrointestinal: Reports as per HPI Musculoskeletal: Musculoskeletal: Reports no additional musculoskeletal complaints Integumentary/Breasts: Skin/Breast: Reports system reviewed and no additional complaints, except as docu [facility] Past Medical History Medical History Adult BMI 26.0-26.9 kg/sq m Anxiety Attention-deficit hyperactivity disorder, other type Depression, major, in remission Gastroesophageal reflux disease without esophagitis Sinusitis Surgical History Surgical History No pertinent past surgical history Family History Family History Grandparent Diabetes mellitus COVID-19 Father No problems noted. Mother No problems noted. Sibling Acute myocardial infarction early 20s; based on EKG findings, no stents Social History Social History Smoking status: Former smoker Tobacco type: e-cigarettes/vaping Second hand tobacco smoke exposure: No Alcohol intake: current Substance use: never Substance use type: does not use Living arrangements: with family Occupation/Education: occupation Additional occupation/education comments: previously worked in day care, now works for a [employer] shop Gender identity (if verbalized by the patient): Male Additional gender identity comments: engaged/has a fiance Comments At the time of my signature, I reviewed and agree with the nursing past medical, surgical, social, and family history. There is no relevant family history pertinent to the patient complaint. Exam Const: General: cooperative, healthy appearing, comfortable, no acute distress, well developed, alert and well nourished Nutritional Appearance: well nourished Orientation/consciousness: patient oriented x3 Limitations: no limitations HENMT: Head: normal to inspection Eyes: General: appearance normal, both eyes and all related structures Alignment and Position: alignment normal Neck: Neck: normal visual inspection, full ROM, no lymphadenopathy and no meningeal signs Chest: Chest palpation & inspection: normal inspection of the chest Resp: Effort & Inspection: normal respiratory effort and able to speak in complete sentences Cardio: Rate: regular rate GI: GI Palp: No abdominal tenderness Rectal Exam: External hemorrhoid(s) present (right anus. Non thrombosed) and hemorrhoids Other: chaperoned by Jackelyn BAH, CRM MARKETING SPECIALIST student Skin: General skin exam: normal color and no rashes or lesions noted Neuro: General: patient oriented x3, gait normal, moves all extremities and no meningeal signs Cognition (Neuro): normal cognition Speech: normal speech Gait exam (Neuro): Normal gait present Extrem: General: normal to inspection, full ROM, capillary refill normal and normal gait Psych: Appearance: grossly normal and well kempt Mental Status: mental status grossly normal Speech and movement: Normal speech and movement present and Clear speech present Affect: normal affect Attitude: cooperative Course Course Level of Care: Express Care Visit Vital Signs Vital signs: Vital Signs Temperature 97.5 F L 02/17/25 11:05 Pulse Rate 66 02/17/25 11:05 Respiratory Rate 18 02/17/25 11:05 Blood Pressure 135/80 02/17/25 11:05 Pulse Oximetry 99 02/17/25 11:05 Oxygen Delivery Room Air 02/17/25 11:05 Temperature 97.5 F L 02/17/25 11:05 Pulse Rate 66 02/17/25 11:05 Respiratory Rate 18 02/17/25 11:05 Blood Pressure 135/80 02/17/25 11:05 Pulse Oximetry 99 02/17/25 11:05 Oxygen Delivery Room Air 02/17/25 11:05 Reviewed Medical Decision Making MDM Narrative Medical decision making narrative: patient sitting in exam room. Patient is nontoxic, vitals stable. Patient in no acute distress. Patient presents with concerns for hemorrhoid. Hemorrhoid is noted to the right of the anus, referral to GI as well as topical and rectal foam prescribed discussed [id number] treatments as well patient appropriate for outpatient treatment with close Discharge instructions reviewed with patient, as well as provided in writing per nursing staff. The instructions also include specific and strict return/GO TO THE ER as well as f/u information. All questions have been answered, and the patient deny any further questions with discharge and discharge plan. Some parts of this dictation were generated by voice recognition software and may contain typographical and/or grammatical inaccuracies. Differential Diagnosis Differential Diagnosis: hemorrhoid, anal fissure, abscess, Medical Records Medical records reviewed: Yes I reviewed the external patient's medical records. Vital Signs Vital Signs: Vital Signs Temperature 97.5 F L 02/17/25 11:05 Pulse Rate 66 02/17/25 11:05 Respiratory Rate 18 02/17/25 11:05 Blood Pressure 135/80 02/17/25 11:05 Pulse Oximetry 99 02/17/25 11:05 Oxygen Delivery Room Air 02/17/25 11:05 Temperature 97.5 F L 02/17/25 11:05 Pulse Rate 66 02/17/25 11:05 Respiratory Rate 18 02/17/25 11:05 Blood Pressure 135/80 02/17/25 11:05 Pulse Oximetry 99 02/17/25 11:05 Oxygen Delivery Room Air 02/17/25 11:05 Reviewed Lab Data Lab results reviewed: Yes I reviewed the patient's lab results. Labs: Reviewed Critical Care Time Critical Care Time Critical Care Time: No Discharge Plan Discharge Clinical Impression: Hemorrhoid Qualifiers: Hemorrhoid type: unspecified Qualified Code(s): K64.9 - Unspecified hemorrhoids Patient Disposition: Home Condition: Stable Instructions: Antibiotic Form, Hemorrhoids (DC) Patient Language: Niuean Prescriptions: New Proctofoam HC 1-1 % foam 1 applic RECTAL QID PRN (Reason: hemorrhoids) Qty: 10 0RF No Action No Home Medications Follow-up/Referrals: PHYSICIAN,WIRELESS SALES MANAGER [Primary Care Provider] - Nino Meyers MD [Physician] - 3 Days ( [facility] follow-up hemorrhoid evaluation) Stand Alone Forms: Work/School Release IP Time of Disposition: 11:34
== END 2025-02-17 11:42 | disposition home or self-care (01) ==
PROVIDERS: Emergency Provider Nurse Practitioner
DX: K64.9 Unspecified hemorrhoids (principal); K21.9 Gastro-esophageal reflux disease without esophagitis; Z87.891 Personal history of nicotine dependence
CPT/HCPCS: 99213; G0463